=== PATIENT | male | born 1960 | race Caucasian/White ===

== ENCOUNTER 2021-05-15 11:54 | Emergency (ER) | payer MEDICAID ==
[~2021-05-15] VITALS: Ht 185.4 cm; Wt 93.6 kg
[2021-05-15 12:05] VITALS: BP 104/66
[2021-05-15] MEDS ORDERED: LIDO700A32 TOP (12:30)
[2021-05-15] MEDS ORDERED: ketorolac trometh inj. 60 MG/2 ML VIAL IM ONE (12:30)
[2021-05-15] MEDS ORDERED: NAPR-56 PO (12:30)
== END 2021-05-15 13:03 | disposition home or self-care (01) ==
LOC: ER 11:54
DX: R07.81 Pleurodynia (principal); R05 Cough; R06.7 Sneezing; I50.9 Heart failure, unspecified; Z72.89 Other problems related to lifestyle; Z79.899 Other long term (current) drug therapy
CPT/HCPCS: 96372; 99283; J1885